=== PATIENT | female | born 1975 | race African-American/Black ===

== ENCOUNTER 2016-05-15 05:25 | Emergency (ER) | payer OTHER, MEDICAID ==
[~2016-05-15] VITALS: Ht 165.1 cm; Wt 86.2 kg
[~2016-05-15 05:25] MED LIST: [UNRECOGNIZED DRUG - OTHER] PO
[2016-05-15 05:33] VITALS: BP_SYST 157; BP_SYST 158; BP_DIAS 108; BP_DIAS 94
--- NOTE | 2016-05-15 05:40 | NUR ---
AMBULATED TO ER BED 4
--- NOTE | 2016-05-15 05:43 | NUR ---
40 Y/O F C/O R FLANK PAIN X 3 DAYS.
--- NOTE | 2016-05-15 05:45 | NUR ---
MATT BATES AT BED SIDE EVALUATING PT.
[2016-05-15] MEDS ORDERED: DIAZEPAM 5 MG TAB PO ONE (05:50)
[2016-05-15] MEDS ORDERED: KETOROLAC 30 MG/ML VIAL IM ONE (05:50)
[2016-05-15 06:38] VITALS: BP 120/70
--- NOTE | 2016-05-15 06:38 | NUR ---
Patient discharged STABLE, VSS, NO S/S OF DISTRESS NOTED AT D/C. Written and verbal after care instructions given and explained. Patient alert, oriented and verbalized understanding of instructions. Ambulatory with steady gait. All questions addressed prior to discharge. ID band removed. Patient advised to follow up with PMD. Rx of NAPROSYN, AND VALIUM given. Patient educated on indication of medication including possible reaction and side effects. Opportunity to ask questions provided and answered.
== END 2016-05-15 06:38 | disposition home or self-care (01) ==
LOC: MED 05:25
DX: R10.9 Unspecified abdominal pain (principal)
CPT/HCPCS: 71010; 81002; 81025; 96372; 99283; J1885